=== PATIENT | female | born 1955 | race Caucasian/White ===

== ENCOUNTER 2018-01-19 16:45 | Emergency (ER) | payer OTHER ==
[2018-01-19] MEDS: HYDROCODONE/APAP (5/325) TAB PO (17:32)
[2018-01-19] MEDS: IBUPROFEN 200 MG TAB PO (17:33)
== END 2018-01-19 18:50 | disposition home or self-care (01) ==
LOC: FTE 16:45
DX: S80.02XA Contusion of left knee, initial encounter (principal); W19.XXXA Unspecified fall, initial encounter; Y92.9 Unspecified place or not applicable
CPT/HCPCS: 73562; 99283-25